=== PATIENT | male | born 1980 | race Caucasian/White ===

== ENCOUNTER 2019-12-18 18:32 | Emergency (ER) | payer BC, SELFPAY ==
[~2019-12-18] VITALS: Ht 182.9 cm; Wt 127.3 kg
[2019-12-18] MEDS ORDERED: normal saline 1000ML IV soln IVB ONE (18:40)
[2019-12-18 19:05] LABS: BASOPHILS # (AUTO) 0.1 X10'3 (0-0.2); BASOPHILS % (AUTO) 0.8 % (0-1); EOSINOPHILS # (AUTO) 0.1 X10'3 (0-0.9); HEMATOCRIT 43.5 % (42.0-52.0); HEMOGLOBIN 14.9 g/dl (14.0-17.9); LYMPHOCYTES # (AUTO) 2.2 X10'3 (1.1-4.8); LYMPHOCYTES % (AUTO) 30.8 % (21-51); MEAN CORPUSCULAR HEMOGLOBIN 29.3 PG (27.0-31.0); MEAN CORPUSCULAR HGB CONC 34.3 g/dL (33.0-36.5); MEAN CORPUSCULAR VOLUME 85.3 FL (78-98); MEAN PLATELET VOLUME 9.4 FL (7.4-10.4); MONOCYTES # (AUTO) 0.6 X10'3 (0-0.9); MONOCYTES % (AUTO) 8.8 % (2-12); NEUTROPHILS # (AUTO) 4.2 X10'3 (1.8-7.7); NEUTROPHILS % (AUTO) 58.6 % (42-75); PLATELET COUNT 164 X10'3 (140-440); RED CELL DISTRIBUTION WIDTH 13.8 % (11.5-14.5); WHITE BLOOD COUNT 7.2 X10'3 (4.5-11.0)
--- NOTE | 2019-12-18 19:15 | NUR ---
Pt responded to trendelenberg manuver and HR from 189 down to 106. Has been sustained at 106-111. Other VSs. Pt reports no other symptoms at this time
[2019-12-18 19:19] LABS: ALANINE AMINOTRANSFERASE 183 U/L (12-78); ALBUMIN 4.1 G/DL (3.4-5.0); ALBUMIN/GLOBULIN RATIO 1.1 (1.1-1.5); ALKALINE PHOSPHATASE 93 IU/L (46-116); ANION GAP 7 (8-16); ASPARTATE AMINO TRANSFERASE 122 U/L (10-37); BILIRUBIN,TOTAL 0.4 MG/DL (0.1-1.0); BLOOD UREA NITROGEN 23 MG/DL (7-18); BUN/CREATININE RATIO 19.7 (5.4-32.0); CALCIUM 9.2 MG/DL (8.5-10.1); CHLORIDE 104 MMOL/L (99-107); CREATININE 1.17 MG/DL (0.60-1.10); GLUCOSE 130 MG/DL (70-104); SODIUM 138 MMOL/L (135-145); TOTAL CARBON DIOXIDE 27.3 MMOL/L (24-32); TOTAL PROTEIN 7.8 G/DL (6.4-8.2); eGFR 69 ML/MIN
[2019-12-18 19:52] VITALS: BP 121/80
== END 2019-12-18 19:54 | disposition home or self-care (01) ==
LOC: ER 18:32
DX: I47.1 Supraventricular tachycardia (principal); Z88.0 Allergy status to penicillin
CPT/HCPCS: 36415; 71045; 80053; 83735; 85025; 93005; 96360; 99285; J7030

== ENCOUNTER 2020-03-20 11:19 | Emergency (ER) | payer BC ==
[~2020-03-20] VITALS: Ht 182.9 cm; Wt 125.0 kg
--- NOTE | 2020-03-20 11:35 | NUR ---
Dr. Tolliver in room with patient. Dr. Tolliver walked patient through vagal maneuver of holding breath and bearing down at which first attempt brought heart rate down to 140 beats/min from 220 beats/min. Second attempt decreased to 103 beats/min. Denies chest discomfort.
[2020-03-20] MEDS ORDERED: metoprolol tartrate 50mg tablet PO ONE (11:40)
[2020-03-20] MEDS ORDERED: METO25TA6 PO (11:42)
[2020-03-20 11:59] LABS: BASOPHILS # (AUTO) 0.1 X10'3 (0-0.2); BASOPHILS % (AUTO) 1.7 % (0-1); EOSINOPHILS % (AUTO) 0.2 % (0-6); HEMATOCRIT 46.8 % (42.0-52.0); HEMOGLOBIN 15.9 g/dl (14.0-17.9); LYMPHOCYTES # (AUTO) 1.7 X10'3 (1.1-4.8); LYMPHOCYTES % (AUTO) 20.8 % (21-51); MEAN CORPUSCULAR HEMOGLOBIN 29.1 PG (27.0-31.0); MEAN CORPUSCULAR VOLUME 85.8 FL (78-98); MEAN PLATELET VOLUME 9.2 FL (7.4-10.4); MONOCYTES # (AUTO) 0.4 X10'3 (0-0.9); MONOCYTES % (AUTO) 4.4 % (2-12); NEUTROPHILS # (AUTO) 5.9 X10'3 (1.8-7.7); NEUTROPHILS % (AUTO) 72.9 % (42-75); PLATELET COUNT 191 X10'3 (140-440); RED BLOOD COUNT 5.46 X10'6 (4.70-6.10); RED CELL DISTRIBUTION WIDTH 13.6 % (11.5-14.5); WHITE BLOOD COUNT 8.1 X10'3 (4.5-11.0)
[2020-03-20 12:09] LABS: ALANINE AMINOTRANSFERASE 94 U/L (12-78); ALBUMIN 4.1 G/DL (3.4-5.0); ALKALINE PHOSPHATASE 88 IU/L (46-116); ASPARTATE AMINO TRANSFERASE 43 U/L (10-37); BILIRUBIN,TOTAL 0.4 MG/DL (0.1-1.0); BLOOD UREA NITROGEN 20 MG/DL (7-18); BUN/CREATININE RATIO 17.2 (5.4-32.0); CALCIUM 9.3 MG/DL (8.5-10.1); CREATININE 1.16 MG/DL (0.60-1.10); GLUCOSE 131 MG/DL (70-104); TOTAL PROTEIN 8.1 G/DL (6.4-8.2); eGFR 69 ML/MIN
[2020-03-20 12:13] LABS: CHLORIDE 104 MMOL/L (99-107); MAGNESIUM 2.1 MG/DL (1.5-2.4); TROPONIN I < 0.04 NG/ML (0.0-0.05)
[2020-03-20 12:15] LABS: ANION GAP 7 (8-16); POTASSIUM 4.1 MMOL/L (3.5-5.1); SODIUM 139 MMOL/L (135-145)
[2020-03-20 13:49] VITALS: BP 124/75
== END 2020-03-20 13:51 | disposition home or self-care (01) ==
LOC: ER 11:19
DX: I47.1 Supraventricular tachycardia (principal); Z88.0 Allergy status to penicillin; Z79.899 Other long term (current) drug therapy
CPT/HCPCS: 36415; 80053; 83735; 84484; 85025; 93005; 99284

== ENCOUNTER 2020-11-13 14:05 | Emergency (ER) | payer BC, SELFPAY ==
[~2020-11-13] VITALS: Ht 183.5 cm; Wt 125.0 kg
[~2020-11-13 14:05] MED LIST: LOP25T PO
[2020-11-13 14:40] VITALS: BP 154/107
[2020-11-13] MEDS ORDERED: ALBU6.7H9 INH (14:58)
== END 2020-11-13 16:23 | disposition home or self-care (01) ==
LOC: ER 14:07
DX: U07.1 COVID-19 (principal); J06.9 Acute upper respiratory infection, unspecified; R50.9 Fever, unspecified; R05 Cough; R51.9 Headache, unspecified; R06.02 Shortness of breath; Z88.0 Allergy status to penicillin; Z79.899 Other long term (current) drug therapy
CPT/HCPCS: 36415; 71045; 99283

== ENCOUNTER 2020-11-16 23:09 | Emergency (ER) | payer BC, SELFPAY ==
[~2020-11-16] VITALS: Ht 182.9 cm; Wt 125.0 kg
[~2020-11-16 23:09] MED LIST changes: +ALBU6.7H9 INH
[2020-11-17] MEDS ORDERED: acetaminophen 325mg tablet PO STA (01:07)
[2020-11-17] MEDS ORDERED: AMLO5TAB4 PO (02:12)
[2020-11-17] MEDS ORDERED: DEXAMETHASONE 6 MG TABLET PO ONE (02:30)
[2020-11-17 03:30] LABS: BASOPHILS % (AUTO) 0.2 % (0-1); EOSINOPHILS % (AUTO) 0 % (0-6); HEMATOCRIT 44.4 % (42.0-52.0); HEMOGLOBIN 15.2 g/dl (14.0-17.9); LYMPHOCYTES # (AUTO) 0.4 X10'3 (1.1-4.8); LYMPHOCYTES % (AUTO) 6.2 % (21-51); MEAN CORPUSCULAR HEMOGLOBIN 29.1 PG (27.0-31.0); MEAN CORPUSCULAR HGB CONC 34.3 g/dL (33.0-36.5); MEAN CORPUSCULAR VOLUME 84.9 FL (78-98); MEAN PLATELET VOLUME 9.5 FL (7.4-10.4); MONOCYTES # (AUTO) 0.3 X10'3 (0-0.9); MONOCYTES % (AUTO) 4.9 % (2-12); NEUTROPHILS # (AUTO) 5.7 X10'3 (1.8-7.7); NEUTROPHILS % (AUTO) 88.7 % (42-75); PLATELET COUNT 102 X10'3 (140-440); RED BLOOD COUNT 5.23 X10'6 (4.70-6.10); RED CELL DISTRIBUTION WIDTH 13.6 % (11.5-14.5); WHITE BLOOD COUNT 6.4 X10'3 (4.5-11.0)
[2020-11-17 03:37] LABS: D-DIMER 1.26 MG/L FEU (0-0.50)
[2020-11-17 03:41] LABS: ALANINE AMINOTRANSFERASE 104 U/L (12-78); ALBUMIN 3.3 G/DL (3.4-5.0); ALBUMIN/GLOBULIN RATIO 0.7 (1.1-1.5); ALKALINE PHOSPHATASE 94 IU/L (46-116); ANION GAP 10 (8-16); ASPARTATE AMINO TRANSFERASE 75 U/L (10-37); BILIRUBIN,TOTAL 0.7 MG/DL (0.1-1.0); BLOOD UREA NITROGEN 19 MG/DL (7-18); BUN/CREATININE RATIO 16.5 (5.4-32.0); C-REACTIVE PROTEIN 9.42 MG/DL (0.0-0.5); CHLORIDE 101 MMOL/L (99-107); CREATININE 1.15 MG/DL (0.60-1.10); GLUCOSE 124 MG/DL (70-104); MAGNESIUM 2.1 MG/DL (1.5-2.4); POTASSIUM 3.4 MMOL/L (3.5-5.1); SODIUM 136 MMOL/L (135-145); TOTAL CARBON DIOXIDE 25.1 MMOL/L (24-32); TOTAL PROTEIN 7.8 G/DL (6.4-8.2); eGFR 70 ML/MIN
[2020-11-17] MEDS ORDERED: CASIRIVIMAB/IMDEVIMAB inject. 10 ML in normal saline 100ml IV soln 100 ML IV ONE (04:15)
[2020-11-17] MEDS ORDERED: DEXA6TAB6 PO (06:04)
[2020-11-17 06:37] VITALS: BP 142/78
[2020-11-17] MEDS ORDERED: DEXAMETHASONE 6 MG TABLET PO SCH (08:00)
== END 2020-11-17 06:39 | disposition home or self-care (01) ==
LOC: ER 23:10
DX: U07.1 COVID-19 (principal); J12.82 Pneumonia due to coronavirus disease 2019; I10 Essential (primary) hypertension; Z88.0 Allergy status to penicillin; Z79.899 Other long term (current) drug therapy
CPT/HCPCS: 36415; 71045; 80053; 83605; 83735; 84145; 85025; 85379; 86140; 87040; 99284; M0243; Q0244; J8540

== ENCOUNTER 2024-12-18 10:54 | Emergency (ER) | payer BC, SELFPAY ==
[~2024-12-18] VITALS: Ht 182.9 cm; Wt 128.5 kg
[~2024-12-18 10:54] MED LIST changes: +ALBU6.7H14 INH; -ALBU6.7H9 INH; +AMLO5TAB4 PO; +DEXA6TAB6 PO
[2024-12-18 11:01] VITALS: TEMP 98.5
--- NOTE | 2024-12-18 11:02 | ELECTROCARDIOGRAPH REPORT ---
[facility] Test Date: 2024-12-18 Test Time: 10:57:38 Pat Name: ANG CHAUDHARI Department: EMERGENCY ROOM Room: Gender: M Backup Administrative Coordinator: ROCÍO : 1980 Requested By: VISH AGUIRRE Order Number: [id number] Reading MD: Measurements Intervals [place] Rate: 200 P: 0 OR: 0 QRS: 132 QRSD: 97 T: 5 QT: 261 QTc: 477 Interpretive Statements Supraventricular tachycardia Right axis deviation ST depression, probably rate related Please click the below link to view image of tracing.
[2024-12-18 11:10] LABS: MEAN PLATELET VOLUME 8.9 FL (7.4-10.4); RED CELL DISTRIBUTION WIDTH 14.3 % (11.5-14.5)
--- NOTE | 2024-12-18 11:17 | Physician Documentation ---
Addendum CHIEF COMPLAINT/HPI: Patient is a 44-year-old male with a history of SVT who underwent ablation four years ago. He comes in today with 20-30 minutes of palpitations, no chest pain and in triage was noted to have a heart rate of 200. REVIEW OF SYSTEMS: Constitutional: Denies chills, fatigue, fever, weight gain or weight loss. HEENT: Denies hearing loss, sinus pressure or visual changes. Respiratory: Denies cough, shortness of breath or wheezing. Cardiovascular: Palpitations. Gastrointestinal: Denies abdominal pain, blood in stool, constipation, diarrhea, heartburn, loss of appetite, nausea or vomiting. Genitourinary: Denies painful urination (dysuria), excessive amount of urine (polyuria) or urinary frequency. Metabolic/Endocrine: Denies cold intolerance, heat intolerance, excessive thirst (polydipsia) or excessive hunger (polyphagia). Neurological: Denies dizziness, extremity numbness, extremity weakness, headaches, seizures or tremors. Psychiatric: Denies anxiety or depression. Integumentary: Denies breast discharge, breast lump, hives, mole change(s), rash or skin lesion. Musculoskeletal: Denies back pain, joint pain, joint swelling or neck pain. Hematologic: Denies easily bleeding, easily bruises, lymphedema or issues with blood clots. Immunologic: Denies food allergies or seasonal allergies. PHYSICAL EXAMINATION: Vitals and nursing note reviewed. Constitutional: General: Patient is awake, alert, oriented x 4 in no acute distress and well appearing. Speech is clear and lucid. Appearance: Normal appearance. Patient is not ill-appearing, toxic-appearing or diaphoretic. HENT: Head: Normocephalic and atraumatic. Mouth/Throat: Mouth: Mucous membranes are moist. Pharynx: Oropharynx is clear. Eyes: General: No scleral icterus. Extraocular Movements: Extraocular movements intact. Pupils: Pupils are equal, round, and reactive to light. Neck: Supple, no Kernig or Brudzinski sign. Cardiovascular: Rate and Rhythm: Tachycardia. Heart sounds: No murmur heard. Pulmonary: Effort: No respiratory distress. Breath sounds: No wheezing, rhonchi or rales. Abdominal: General: There is no distension. Palpations: There is no fluid wave, hepatomegaly or mass. Tenderness: There is no abdominal tenderness. There is no guarding. Musculoskeletal: General: No swelling or deformity. Skin: Coloration: Skin is not jaundiced. Findings: No erythema or rash. Neurological: Mental Status: Patient is alert. EKG medically necessary in the evaluation of palpitations and interpreted by me at the time of patient evaluation. Rhythm is supraventricular tachycardia with a rate of 200. Right axis deviation Impression: Abnormal EKG. EKG medically necessary in the evaluation of spontaneous cardioversion and interpreted by me at the time of patient evaluation. Rhythm is sinus tachycardia with a rate of 104. Impression: Normal EKG. ECG reading does not show any acute signs of obvious ischemia. No evidence of A- V block. No short NE, delta waves, or wide QRS concerning for [place]. No long QT events on my read. I do not see evidence of Brugada with ST elevations in V1 through V3. No epsilon wave noted. No low voltage suggestive of pericardial effusion. No right ventricular strain pattern. MEDICAL DECISION MAKING: This 44-year-old man presented with supraventricular tachycardia with a rate of 200. He did convert spontaneously in the emergency department. His only medications currently are lisinopril and pantoprazole. He says that he has not been consuming any caffeine but he may have been a little dehydrated from working in the yard all day yesterday. 3:23 p.m.: I spoke with Dr. Renato Jarvis who recommended metoprolol 25 mg b.i.d. and follow-up in his office. I am going to discharge the patient as per Dr. Jarvis. Departure Disposition: 01 HOME / SELF CARE / HOMELESS Impression: Primary Impression: SVT (supraventricular tachycardia) Condition: Stable Additional Instructions: You have been evaluated for SVT. As we discussed, please begin taking metoprolol twice daily and follow-up in Dr. Jarvis office. In the meantime, return here for worsening symptoms or new/unusual symptoms. Referrals: JONAS JARVIS MD Prescriptions Metoprolol Tartrate* (Lopressor tablet*) 25 Mg Tablet 1 TABLET PO BID, #60 TABLET 5 Refills Prov: VISH AGUIRRE MD 12/18/24 Education Educated: Patient, Family Educated regarding: diagnosis, treatment, prognosis, need for follow up VISH AGUIRRE MD Dec 18, 2024 11:17
--- NOTE | 2024-12-18 11:28 | RADIOLOGY REPORT ---
CHEST RADIOGRAPH Indication: CP Technique: Single frontal view of the chest was obtained Comparison: None FINDINGS: Lines and Tubes: None Lungs: No focal consolidation. Pleura: No effusion. No pneumothorax. Cardiomediastinal contours: Unremarkable Bones: No acute osseous abnormality. IMPRESSION: No acute cardiopulmonary disease.
[2024-12-18 11:31] LABS: CREATININE 1.12 MG/DL (0.60-1.10); PRO BRAIN NATRIURETIC PEPTIDE 54 PG/ML (0-125); TOTAL CARBON DIOXIDE 25.5 MMOL/L (24-32); eCRCL 90 ML/MIN; eGFR 71 ML/MIN
[2024-12-18 14:57] VITALS: BP 135/87; PULSE 88; RESP 16; O2SAT 97
[2024-12-18] MEDS ORDERED: LOP25T PO (15:27)
--- NOTE | 2024-12-18 16:03 | ELECTROCARDIOGRAPH REPORT ---
[facility] Test Date: 2024-12-18 Test Time: 11:09:59 Pat Name: ANG CHAUDHARI Department: EMERGENCY ROOM Room: Gender: M Hedis Analyst: ROCÍO : 1980 Requested By: VISH AGUIRRE Order Number: [id number] Reading MD: Measurements Intervals [place] Rate: 104 P: 49 [place]: 158 QRS: 31 QRSD: 101 T: 40 QT: 350 QTc: 461 Interpretive Statements Sinus tachycardia Please click the below link to view image of tracing.
== END 2024-12-18 15:57 | disposition home or self-care (01) ==
LOC: ER 10:55
DX: I47.10 Supraventricular tachycardia, unspecified (principal); Z86.79 Personal history of other diseases of the circulatory system
CPT/HCPCS: 36415; 71045; 80048; 83880; 84484; 85025; 93005; 99285; J7030